=== PATIENT | male | born 1970 | race African-American/Black ===

== ENCOUNTER 2024-10-19 07:45 | Outpatient (AMB) | payer OTHER, SELFPAY ==
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
[2024-10-19 09:14] VITALS: BMI 44.6
== END 2024-10-19 09:47 | disposition home or self-care (01) ==
LOC: HO.HOS 07:45
PROVIDERS: Visit Provider Physician Assistant
DX: M25.812 Other specified joint disorders, left shoulder (principal)
CPT/HCPCS: 20610; 99203

== ENCOUNTER 2024-10-19 07:45 | Outpatient (REF) | payer OTHER, SELFPAY ==
--- NOTE | ~2024-10-19 | XR_ITS ---
EXAMINATION: XR SHOULDER 2 OR MORE VIEWS LEFT HISTORY: M25.512 - Pain in left shoulder COMPARISON: There are no prior studies available for comparison. FINDINGS: Three views of the left shoulder are submitted. Osseous mineralization is normal. There is no fracture or dislocation. The glenohumeral and acromioclavicular joint spaces are preserved. The soft tissues are unremarkable. XR/XR shoulder LT min 2V IMPRESSION: Unremarkable examination of the left shoulder. Electronically signed by: Colin Bailey MD 10/19/2024 09:26 AM EDT
== END 2024-10-19 07:46 | disposition home or self-care (01) ==
LOC: HO.HOSX 07:45
PROVIDERS: Visit Provider Physician Assistant
DX: S93.409A Sprain of unspecified ligament of unspecified ankle, initial encounter (principal); M25.812 Other specified joint disorders, left shoulder; M25.512 Pain in left shoulder; V89.2XXA Person injured in unspecified motor-vehicle accident, traffic, initial encounter
CPT/HCPCS: 20610; 73030; 99202; J1010; J2003

== ENCOUNTER → 2024-10-19 08:50 | Outpatient (BNV) | payer OTHER, SELFPAY | PROVIDERS: Visit Provider Radiology Diagnostic Radiology | DX: M25.512 Pain in left shoulder (principal) | CPT/HCPCS: 73030 ==

== ENCOUNTER 2024-11-12 07:47 | Outpatient (REF) | payer OTHER, SELFPAY ==
--- NOTE | ~2024-11-12 | XR_ITS ---
Examination: X-ray of the lumbar spine 4v Min TECHNIQUE: AP, bilateral oblique, lateral, lateral lumbosacral junction spot, x-rays of the lumbar spine Indication: M54.9 - Dorsalgia, unspecified Prior: None FINDINGS: The bowel gas pattern is normal. Calcifications in the pelvis are likely phleboliths. SI joints are symmetrical without degeneration, effusion, or erosions. There are 5 non-rib bearing lumbar segments. Vertebral body height and alignment is preserved. Oblique views demonstrate no pars interarticularis defects. T12-L1: There is minimal disc space narrowing L1-L2: There is mild disc space narrowing with endplate sclerosis and osteophytes L2-L3: There is subtle retrolisthesis L3-L4: There is subtle retrolisthesis and minimal loss of disc height. Small anterior osteophyte is noted L4-L5: There is minimal disc space narrowing with small endplate osteophytes. There is facet sclerosis. L5-S1: Unremarkable XR/XR lumbar spine 4V min IMPRESSION: Mild multilevel degenerative disc disease and facet arthropathy in the lower lumbar spine. Electronically signed by: Jon Rebollar MD 11/12/2024 10:01 AM EDT
== END 2024-11-12 07:48 | disposition home or self-care (01) ==
LOC: HO.HOSX 07:47
PROVIDERS: Visit Provider Physical Medicine & Rehabilitation
DX: M54.50 Low back pain, unspecified (principal)
CPT/HCPCS: 72110; 99202

== ENCOUNTER 2024-11-12 07:47 | Outpatient (AMB) | payer OTHER, SELFPAY ==
--- OUTSIDE RECORDS SUMMARY | 2024-11-11 11:30 | XMS_ITS | Encounter Summary ---
Author Organization [facility] Address [address] [place] [address] Care Team Providers Care Restuarant Crew Worker Name Role Phone Gael Alves MD Primary Care Provider [phone] Reason for Referral * Gastroenterology (Routine) - Authorized Specialty Diagnoses / Procedures Referred By Contac t Referred To Contact Gastroenterology Diagnoses Colon cancer screening Gael Alves MD [address] [place] [address] Phone: tel: fax: Randy Pickering MD [address] [place] [phone] Phone: tel: fax: Referral ID Status Reason Start Date Expiration Date V isits Requested Visits Authorized [id number] Authorized Consult 11/11/2024 11/12/2025 1 1 Question Answer Select Referral Type: Consult Reason for Visit * Reason Comments Annual Exam Encounter Details Date Type Department Care Team ([facility] Contact Info) Description 11/11/2024 11:30 AM EDT Office Visit [facility] [address] [phone] Gael Alves MD [address] [place] [address] Type 2 diabetes mellitus with hyperglycemia, without long-term current use of insulin (HCC) (Primary Dx); Screen for STD (sexually transmitted disease); Colon cancer screening; Annual physical exam Social History Tobacco Use Types Packs/Day Years Used Date Smoking Tobacco: Former Cigarettes Q uit: 03/18/2007 Smokeless Tobacco: Never Alcohol Use Standard Drinks/Week Comments Yes 0 (1 standard drink = 0.6 oz pur e alcohol) on [employer] [facility] Utilities Answer Date Recorded In the past 12 months has [employer], gas, oil, or water [employer] threatened to shut off services in your home? No 11/09/2024 Social Connection and Isolat ion Panel [NHANES] Answer Date Recorded In a typical week, how many times do you talk on the phone with family, friends, or neighbors? More than three times a week 11/09/2024 Frequency of Social Gatherin gs with Friends and Family Not on file 11/09/2024 Attends Adventism Services Not on file 11/09 Active Member of Clubs or Organizations Not on f ile 11/09/2024 Attends Club or Organization Meetings Not on stephen e 11/09/2024 Marital Status Not on file 11/09/2024 AUDIT-C Answer Date Recorded Q1: How often do you have a drink containing alcohol? Monthly or less 11/09/2024 Q2: How many drinks containi ng alcohol do you have on a typical day when you are drinking? Patient does not drink Frequency of Binge Drinking Not on file 10/17 Overall Financial Resource Strain (CARDIA) Answe r Date Recorded How hard is it for you to pa y for the very basics like food, housing, medical care, and heating? Not hard at all 02/10/2023 PHQ-2 Answer Date Recorded PHQ-2 Total Score 0 11/09/2024 [facility] [place] [facility] Occup[facility] ional [facility] - Occupational Stress Questionnaire Answer Date Recorded Do you feel stress - tense, restless, nervous, or anxious, or unable to sleep at night because your mind is troubled all the time - these days? Not at all 02/10/2023 Hunger Vital Sign Answer Date Recorded Within the past 12 months, y ou worried that your food would run out before you got the money to buy more. Never true 11/10/19 Within the past 12 months, t he food you bought just didn't last and you didn't have money to get more. Never true 11/09/2024 PRAPARE - Transportation Answer Date Re corded In the past 12 months, has l ack of transportation kept you from medical appointments or from getting medications? No 10/17 In the past 12 months, has l ack of transportation kept you from meetings, work, or from getting things needed for daily living? No 11/09/2024 Housing Stability Vital Sign Answer Forrest e Recorded In the last 12 months, was t here a time when you were not able to pay the mortgage or rent on time? No 11/09/2024 In the past 12 months, how m any times have you moved where you were living? 0 11/09/2024 At any time in the past 12 m [facility], were you homeless or living in a care home (including now)? No 11/09/2024 Physical Activity Answer Date Recorded On average, how many days pe r week do you engage in moderate to strenuous exercise (like a brisk walk)? 1 day 11/09/2024 On average, how many minutes do you exercise per day at this level? 10 min 11/09/2024 Education Answer Date Recorded What is the highest level of school you have completed or the highest degree you have received? 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 Not on file Not on stephen e documented as of this encounter Last Filed Vital Signs Vital Sign Reading Time Taken Comments Blood Pressure 134/82 11/11/2024 11:11 AM EDT Pulse 81 11/11/2024 11:11 AM EDT Temperature - - Respiratory Rate 16 11/11/2024 11:11 AM EDT Oxygen Saturation 99% 11/11/2024 11:11 AM EDT Inhaled Oxygen Concentration - - Weight 169 kg (371 lb 9.6 oz) 11/11/2024 11:11 A M EDT Height 180.3 cm (5' 11 ) 11/11/2024 11:11 AM EDT Body Mass Index 51.83 11/11/2024 11:11 AM EDT documented in this encounter Patient Instructions * Attachments The following attachments cannot be sent through Care Everywhere. * Diabetes Mellitus and Nutrition Adult (Romansh) documented in this encounter Progress Notes * Gael Alves MD - 11/11/2024 11:37 AM EDT Assessment and Plan 1. Type 2 diabetes mellitus with hyperglycemia, without long-term current use of insulin (HCC) - Complete Blood Count, with Differential - semaglutide (Ozempic, 0.25 or 0.5 MG/DOSE,) (0.25 or 0.5 mg/dose pen) prefilled pen injection; Inject 0.25 mg under the skin once a week. Dispense: 3 mL; Refill: 0 - metFORMIN (GLUCOPHAGE) 500 MG tablet; Take 1 tablet (500 mg total) by mouth 2 (two) times a day with meals. Dispense: 180 tablet; Refill: 3 - Alcohol Swabs 70 % Pads; Use 1x / day Dispense: 100 Pad(s); Refill: 5 - Blood Glucose Monitoring Suppl Kit; Use 1x / day Dispense: 1 kit; Refill: 0 - glucose blood test strip; Use 1x / day Dispense: 100 each; Refill: 5 - Lancets Thin Misc Lancet; Use 1x / day Dispense: 100 lancet(s); Refill: 5 2. Screen for STD (sexually transmitted disease) - GC/Chlamydia, RNA TMA - Hepatitis C Antibody & HIV 1/2, Screen & Diagnostic Panel w/Reflexes - Hepatitis Panel, Acute - Trichomonas vaginalis RNA, TMA, Urine, Q1 (Male) - Syphilis ANDREW reflex RPR Titer & TPPA 3. Colon cancer screening - Amb Referral to Gastroenterology - Clinically stable and afebrile. - Recent lab work reviewed at length. A1c is above 7. Lengthy discussion regarding regular exerciseand healthy diet planning. Treatment plan as above. Needs close follow-up in 4 weeks. - Statin/ARB to be considered on next visit. Plan/Discussion: - Patient is advised to seek immediate medical help if strict red flag symptoms or signs develops or develops shortness of breath, chest pain, dizziness The care plan including medications and self-management goals were reviewed to the best of the patient's ability. All questions were answered. The patient or accompanying family member verbalized understanding of the plan of care. As per up-to-date guideline : risk of thyroid C-cell tumors with Ozempic use In rodents, ??m?gl?ti?e causes dose-dependent and cklqqdjyt-eoicyxfh-ngmakaluf thyroid C-cell tumors at clinically relevant exposures. It is unknown whether ?em?gl?ti?e causes thyroid C-cell tumors, including medullary thyroid carcinoma (MTC), in humans as human relevance of ??m?gluti?e-induced rodent thyroid C-cell tumors has not been determined. ??m?glutide is contraindicated in patients with a personal or family history of MTC or in patients with Multiple Endocrine Neoplasia syndrome type 2 (MEN 2). Client Services Account Manager patients regarding the potential risk for MTC with the use of ??m?gluti?e and inform them of symptoms of thyroid tumors (eg, a mass in the neck, dysphagia, dyspnea, persistent hoarseness). Routine monitoring of serum calcitonin or using thyroid ultrasound is of uncertain value for early detection of MTC in patients treated with ??magluti??. There are no discontinued medications. Return in about 4 weeks (around 12/09/2024) for DM follow up, AVS print out. Communication barriers and lifestyle preferences were addressed with the patient. The care plan including medications and self-management goals were reviewed to the best of the patient's abilities. All questions and concerns were answered. Patient and/or family verbalized understanding of the plan of care. Screening, Counseling & Education Labs reviewed, Nutrition and exercise counseling, and Exercise recommended- 150 minutes per week Subjective Subjective Patient's concern for today: Review of Systems Constitutional: Negative for fever. Eyes: Negative for photophobia and visual disturbance. Respiratory: Negative for cough, choking, shortness of breath and wheezing. Cardiovascular: Negative for chest pain, palpitations and leg swelling. Gastrointestinal: Positive for blood in stool (? hemorrhoides). Negative for abdominal pain. Genitourinary: Negative for flank pain and frequency. Musculoskeletal: Negative for arthralgias. Neurological: Negative for dizziness, syncope, weakness and headaches. Psychiatric/Behavioral: Negative for self-injury and suicidal ideas. General Health & Lifestyle Review Do you feel you eat a healthy and well balanced diet?: (Patient-Rptd) No Do you have a special kind of diet?: (Patient-Rptd) No On average, how many days per week do you engage in moderate to strenuous exercise (like a brisk walk)?: (Patient-Rptd) 1 day On average, how many minutes do you exercise per day at this level?: (Patient- Rptd) 10 min Total minutes per week of physical activity: : (Patient-Rptd) 10 Body mass index is 51.83 kg/m??. Wt Readings from Last 2 Encounters: 11/11/24 (!) 169 kg (371 lb 9.6 oz) 11/11/23 (!) 167 kg (368 lb) How would you rate your sleep quality? : (Patient-Rptd) Occasional unrestful sleep Do you have any problems with your hearing?: (Patient-Rptd) No Do you have any problems with your vision?: (Patient-Rptd) No Sexual/ Reproductive Health Are you sexually active?: (Patient-Rptd) Yes Do you use control/contraception?: (Patient-Rptd) No Do you have problems with sex?: (Patient-Rptd) No Sexual partners?: (Patient-Rptd) Women Do you want STD testing today?: (!) (Patient-Rptd) Yes Nocturia: 0 - 1 times per night Mental Health/Domestic Violence/Safety Screening Depression Screen: PHQ-9 Total Score: 0 Anxiety Screen: THI-7 Total Score: 0 Is there anyone in your life who is hurting or threatening you in any way? no Referral Hotline [phone] (Romansh) [phone] (Mal[place]ian) Do you always fasten your seatbelt when you are in a car?: (Patient-Rptd) Yes Do you wear a helmet when appropriate?: (Patient-Rptd) Yes Do you wear sunscreen when appropriate?: (Patient-Rptd) Yes Do you have working smoke and carbon monoxide detectors?: (Patient-Rptd) Yes Do you have any unsecured firearms in your home?: (Patient-Rptd) No Health Maintenance & Immunizations Health Maintenance Due Topic Date Due Hepatitis B Vaccines (1 of 3 - 19+ 3-dose series) Never done DTaP/Tdap/Td Vaccines (1 - Tdap) Never done Colonoscopy Never done Pneumococcal Vaccines 50+ (1 of 1 - PCV) Never done Zoster (Shingles) Vaccine (1 of 2) Never done The 10-year ASCVD risk score (Carolina WOOTEN, et al., 2019) is: 5.9% Values used to calculate the score: Age: 54 years Sex: Male Is Non- : Yes Diabetic: No Tobacco smoker: No Systolic Blood Pressure: 134 mmHg Is BP treated: No HDL Cholesterol: 55 mg/dL Total Cholesterol: 176 mg/dL Health Maintenance Topic Date Due Hepatitis B Vaccines (1 of 3 - 19+ 3-dose series) Never done DTaP/Tdap/Td Vaccines (1 - Tdap) Never done Colonoscopy Never done Pneumococcal Vaccines 50+ (1 of 1 - PCV) Never done Zoster (Shingles) Vaccine (1 of 2) Never done Physical 11/11/2025 Hepatitis C Virus Screening Completed HIV Screening Completed COVID-19 Vaccine Discontinued Influenza Vaccine Discontinued PSA:Due now Lab Results Component Value Date PSA 0.39 10/28/2024 Colonoscopy:Cologuard requested Screening due:At this time. Hemoglobin A1C: Lab Results Component Value Date HGBA1C 7.8 (H) 10/28/2024 Thyroid: Lab Results Component Value Date TSH 1.01 10/28/2024 Lipids:Last lipid results shown. Lab Results Component Value Date CHOL 176 10/28/2024 HDL 55 10/28/2024 CHOLHDLRAT 3.2 10/28/2024 LDLCHOL 97 10/28/2024 TRIG 137 10/28/2024 Social History Social History[3] Objective Objective Vitals: 11/11/24 1111 BP: 134/82 BP Location: Right arm Patient Position: Sitting Cuff Size: Large Pulse: 81 Resp: 16 SpO2: 99% Weight: (!) 169 kg (371 lb 9.6 oz) Height: 1.803 m (5' 11 ) Physical Exam Constitutional: General: He is not in acute distress. Appearance: He is well-developed. HENT: Head: Normocephalic and atraumatic. Cardiovascular: Rate and Rhythm: Normal rate and regular rhythm. Heart sounds: No murmur heard. Pulmonary: Effort: Pulmonary effort is normal. No respiratory distress. Breath sounds: Normal breath sounds. No wheezing or rales. Abdominal: General: There is no distension. Palpations: Abdomen is soft. Tenderness: There is no abdominal tenderness. There is no guarding. Musculoskeletal: Cervical back: Normal range of motion. Right lower leg: No edema. Left lower leg: No edema. Skin: General: Skin is warm and dry. Neurological: Mental Status: He is alert and oriented to person, place, and time. Psychiatric: Mood and Affect: Mood normal. Behavior: Behavior normal. Testing ECG: Not required or indicated. Lab results: As per chart review. [3] Social History Tobacco Use Smoking status: Former Current packs/day: 0.00 Types: Cigarettes Quit date: 03/18/2007 Years since quittin.6 Smokeless tobacco: Never Vaping Use Vaping status: Never Used Substance Use Topics Alcohol use: Yes Comment: on ocassion Drug use: Never documented in this encounter Plan of Treatment Upcoming Encounters Date Type Department Care Team (Late st Contact Info) Description 12/10/2024 11:00 AM EDT Office Visit [address] [phone] Gael Alves MD [address] [place] [phone] Scheduled Orders Name Type Priority Associated Diagnoses Orde r Schedule GC/Chlamydia, RNA TMA Microbiology Routine Screen for STD (sexually transmitted disease) Ordered: 11/11/2024 Hepatitis C Antibody & HIV 1/2, Screen & Diagnostic Panel w/Reflexes Lab Routine Screen for STD (sexually transmitted disease) Ordered: 11/11/2024 Hepatitis Panel, Acute Lab Routine Screen for STD (sexually transmitted disease) Ordered: 11/11/2024 Trichomonas vaginalis RNA, TMA, Urine, Q1 (Male) Lab Routine Screen for STD (sexually transmitted disease) Ordered: 11/11/2024 Syphilis ANDREW reflex RPR Titer & TPPA Lab Routine Screen for STD (sexually transmitted disease) Ordered: 11/11/2024 Complete Blood Count, with Differential Lab Routine Type 2 diabetes mellitus with hyperglycemia, without long-term current use of insulin (HCC) Ordered: 11/11/2024 Scheduled Referrals Name Type Priority Associated Diagnoses Order Schedule Amb Referral to Gastroenterology Outpatient Referral Routine Colon cancer screening Ordered: 11/11/2024 documented as of this encounter Visit Diagnoses Diagnosis Type 2 diabetes mellitus with hyperglycemia, without long-term current use of insulin (HCC)- Primary Screen for STD (sexually transmitted disease) Screening examination for venereal disease Colon cancer screening Special screening for malignant neoplasms, colon Annual physical exam Routine general medical examination at a health care facility documented in this encounter Care Teams Restuarant Crew Worker Relationship Specialty Start Date End Date Gael Alves MD [address] [place] [phone] PCP - General Family Medicine 07/30/22 documented as of this encounter
--- OUTSIDE RECORDS SUMMARY | 2024-11-12 07:51 | XMS_ITS | Encounter Summary ---
Author Organization [facility] Address [address] [place] [address] Care Team Providers Care Center Rep Name Role Phone Gael Alves MD Primary Care Provider +1- [phone] Encounter Details Date Type Department Care Team (Late Contact Info) Description 01/22/2023 Scanned Document [facility] PRIMARY CARE SCAN Primary Care, Scan Social History Tobacco Use Types Packs/Day Years Used Date Smoking Tobacco: Former Cigarettes 0.3 2017 Smokeless Tobacco: Never Alcohol Use Standard Drinks/Week Comments Yes 0 (1 standard drink = 0.6 oz pur e alcohol) on ocassion PHQ-2 Answer Date Recorded PHQ-2 Total Score 0 07/30/2022 [facility] of Occupat ional Health - Occupational Stress Questionnaire Answer Date Recorded Do you feel stress - tense, restless, nervous, or anxious, or unable to sleep at night because your mind is troubled all the time - these days? 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
--- OUTSIDE RECORDS SUMMARY | 2024-11-12 07:51 | XMS_ITS | Encounter Summary ---
Author Organization [facility] Address [address] [place] [address] Care Team Providers Care Manager Electronic Name Role Phone Gael Alves MD Primary Care Provider +1- [phone] Encounter Details Date Type Department Care Team (Late st Contact Info) Description 04/11/2023 Scanned Document [address] [place] [phone] Primary Care, Scan Social History Tobacco Use Types Packs/Day Years Used Date Smoking Tobacco: Former Cigarettes Q uit: 03/18/2007 Smokeless Tobacco: Never Alcohol Use Standard Drinks/Week Comments Yes 0 (1 standard drink = 0.6 oz pur e alcohol) on [employer] [facility] Utilities Answer Date Recorded In the past 12 months has [employer] [employer], gas, oil, or water company threatened to shut off services in your home? No 02/10/2023 Social Connection and Isolat ion Panel [NHANES] Answer Date Recorded In a typical week, how many times do you talk on the phone with family, friends, or neighbors? More than three times a week 02/10/2023 How often do you get togethe r with friends or relatives? More than three times a week 02/10/2023 How often do you attend chur ch or scientology services? Never 02/10/2023 Do you belong to any clubs o r organizations such as amish groups, unions, fraternal or athletic groups, or school groups? No 02/10/2023 How often do you attend meet ings of the clubs or organizations you belong to? Never 02/10/2023 Are you , , di vorced, , never , or living with a partner? Living with partner 02/10/2023 AUDIT-C Answer Date Recorded Q1: How often do you have a drink containing alc ohol? 2-4 times a month 02/10/2023 Q2: How many drinks containi ng alcohol do you have on a typical day when you are drinking? 1 or 2 02/10/2023 Q3: How often do you have si x or more drinks on one occasion? Never 02/10/2023 Overall Financial Resource Strain (CARDIA) Answe r Date Recorded How hard is it for you to pa y for the very basics like food, housing, medical care, and heating? Not hard at all 02/10/2023 PHQ-2 Answer Date Recorded PHQ-2 Total Score 0 02/11/2023 [facility] - Occupational Stress Questionnaire Answer Date Recorded [...] the money to buy more. Never true 02/11/20 23 Within the past 12 months, t he food you bought just didn't last and you didn't have money to get more. Never true 02/10/2023 PRAPARE - Transportation Answer Date Re corded In the past 12 months, has l ack of transportation kept you from medical appointments or from getting medications? No 01/17 In the past 12 months, has l ack of transportation kept you from meetings, work, or from getting things needed for daily living? No 02/10/2023 Physical Activity Answer Date Recorded On average, how many days pe r week do you engage in moderate to strenuous exercise (like a brisk walk)? 5 02/10/2023 On average, how many minutes do you exercise per day at this level? 30 02/10/2023 Education Answer Date Recorded What is the [...] Description 12/10/2024 11:00 AM EDT Office Visit [facility] [address] [place] [phone] Gael Alves MD [address] [place] [address] documented as of this encounter Procedures Procedure Name Priority Date/Time Associated Diagnosis Comments HX OUTSIDE ORDER 04/11/2023 documented in this encounter Results * HX OUTSIDE ORDER (04/11/2023) us Scan Primary Care HX AMB PROCEDURES Final Result documented in this encounter Visit Diagnoses Not on filedocumented in this encounter Care Teams Manager Electronic Relationship Specialty Start Date End Date Gael Alves MD [address] [place] [phone] PCP - General Family Medicine 07/30/22 documented as of this encounter
--- OUTSIDE RECORDS SUMMARY | 2024-11-12 07:51 | XMS_ITS | Encounter Summary ---
Author Organization [facility] Address [address] [place] [address] Care Team Providers Care Admissions Counselor Name Role Phone Gael Alves MD Primary Care Provider +1- [phone] Encounter Details Date Type Department Care Team ([facility] st Contact Info) Description 10/10/2023 Scanned Document [facility] [address] [phone] Mouna Case, BUNKER WORKER [address] [place] [address] Social History Tobacco Use Types Packs/Day Years Used Date Smoking Tobacco: Former Cigarettes Q uit: 03/18/2007 Smokeless Tobacco: Never Alcohol Use Standard Drinks/Week Comments Yes 0 (1 standard drink = 0.6 oz pur e alcohol) on [employer] [facility] Utilities Answer Date Recorded In the past 12 months has [employer], gas, oil, or water [employer] threatened to shut off services in your [...] often do you attend chur ch or denominational services? Never 02/10/2023 Do you belong to any clubs o r organizations such as gnosticism groups, unions, fraternal or athletic groups, or [...] Date Recorded PHQ-2 Total Score 0 02/11/2023 [facility] of Occupat ional Health - Occupational [...] Description 12/10/2024 11:00 AM EDT Office Visit [facility] [address] [place], [place] [phone] Gael Alves MD [address] [place], [place] documented as of this encounter Visit Diagnoses Not on filedocumented in this encounter Care Teams Admissions Counselor Relationship Specialty Start Date End Date Gael Alves MD [address] [place] [address] PCP - General Family Medicine 07/30/22 documented as of this encounter
--- OUTSIDE RECORDS SUMMARY | 2024-11-12 07:51 | XMS_ITS | Encounter Summary ---
Author Organization [facility] Address [address] [place] [address] Care Team Providers Care Lawn Mower Repairer Name Role Phone Gael Alves MD Primary Care Provider +1- [phone] Encounter Details Date Type Department Care Team (Latest Contact Info) Description 11/11/2024 Travel Social History Tobacco Use Types Packs/Day Years Used Date Smoking Tobacco: Former Cigarettes Q uit: 03/18/2007 Smokeless Tobacco: Never Alcohol Use Standard Drinks/Week Comments Yes 0 (1 standard drink = 0.6 oz pur e alcohol) on [employer] Utilities Answer Date Recorded In the past 12 months has [place] electric, gas, oil, or water company threatened [...] and Family Not on file 11/09/2024 Attends Muslim Services Not on file 11/09 Active Member [...] Date Recorded PHQ-2 Total Score 0 11/09/2024 [facility] of Occupat ional Health - Occupational Stress [...] any time in the past 12 m [facility], were you homeless or living in a residential (including now)? No 11/09/2024 Physical Activity Answer [...] Description 12/10/2024 11:00 AM EDT Office Visit [address] [phone] Gael Alves MD [address] [place] [address] documented as of this encounter Visit Diagnoses Not on filedocumented in this encounter Care Teams Lawn Mower Repairer Relationship Specialty Start Date End Date Gael Alves MD [address] [place] [address] PCP - General Family Medicine 07/30/22 documented as of this encounter
--- OUTSIDE RECORDS SUMMARY | 2024-11-12 07:51 | XMS_ITS | Encounter Summary ---
Author Organization [facility] Address [address] [place] [address] Care Team Providers Care Metabolic Specialist Name Role Phone Gael Alves MD Primary Care Provider +1- [phone] Reason for Visit * Reason Comments Appointment Encounter Details Date Type Department Care Team ([facility] Contact Info) Description 10/11/2022 Telephone [facility] [place] [phone] Gael Alves MD [address] [place] [phone] Appointment Social History Tobacco Use Types Packs/Day Years Used Date Smoking Tobacco: Former Cigarettes 0.3 10 2017 Smokeless Tobacco: Never Alcohol Use Standard Drinks/Week Comments Yes 0 (1 standard drink = 0.6 oz pur e alcohol) on ocassion PHQ-2 Answer Date Recorded PHQ-2 Total Score 0 07/30/2022 Sex and Gender Information Value Date Recorded [...] Description 12/10/2024 11:00 AM EDT Office Visit [facility] [address] [place], [place] [phone] Gael Alves MD [address] [place], [place] documented as of this encounter Visit Diagnoses Not on filedocumented in this encounter Care Teams Metabolic Specialist Relationship Specialty Start Date End Date Gael Alves MD [address] [place] [address] PCP - General Family Medicine 07/30/22 documented as of this encounter
--- OUTSIDE RECORDS SUMMARY | 2024-11-12 07:51 | XMS_ITS | Encounter Summary ---
Author Organization [facility] Address [address] [place] [address] Care Team Providers Care Wash Rack Operator Name Role Phone Gael Alves MD Primary Care Provider +1- [phone] Encounter Details Date Type Department Care Team ([facility] st Contact Info) Description 04/19/2023 Scanned Document [facility] [address] [phone] MD [address] [place] [address], [place] [address] Social History Tobacco Use Types Packs/Day Years Used Date Smoking Tobacco: Former Cigarettes Q uit: 03/18/2007 Smokeless Tobacco: Never Alcohol Use Standard Drinks/Week Comments Yes 0 (1 standard drink = 0.6 oz pur e alcohol) on [employer] Utilities Answer Date Recorded In the past 12 months has [employer], gas, oil, or water [employer] threatened to shut off services in your [...] often do you attend chur ch or yarsanism services? Never 02/10/2023 Do you belong to any clubs o r organizations such as voodoo groups, unions, fraternal or athletic groups, or [...] Date Recorded PHQ-2 Total Score 0 02/11/2023 [facility] of Occupat ional Health - Occupational [...] Description 12/10/2024 11:00 AM EDT Office Visit [facility] [address] [place] [phone] Gael Alves MD [address] [place], [place] documented as of this encounter Visit Diagnoses Not on filedocumented in this encounter Care Teams Wash Rack Operator Relationship Specialty Start Date End Date Gael Alves MD [address] [place] [address] PCP - General Family Medicine 07/30/22 documented as of this encounter
--- OUTSIDE RECORDS SUMMARY | 2024-11-12 07:51 | XMS_ITS | Clinical Summary ---
Author Organization [facility] Address [address] [place] [address] Phone Care Team Providers Care Policy Officer Name Role Phone Gael Alves MD Primary Care Provider +1- [phone] Allergies No known active allergies Medications methocarbamoL (ROBAXIN) 500 mg tablet Take 1 tablet (500 mg total) by mouth 2 (two) times a day for 10 days. 20 tablet 06/11/2024 Active Social History Tobacco Use Types Packs/Day Years Used Date Smoking Tobacco: Never Smokeless Tobacco: Never Tobacco Cessation:Counseling Given: Not Answered Sex and Gender Information Value Date Recorded Sex Assigned at Male 03/25/2024 2:09 PM EST Legal Sex Male 1:07 PM EST Gender Identity Male 03/25/2024 2:09 PM EST Sexual Orientation Straight 03/25/2024 2: 09 PM EST Obstetrics History Last Filed Vital Signs Vital Sign Reading Time Taken Comments Blood Pressure 150/84 06/11/2024 1:54 PM EDT Pulse 89 06/11/2024 1:54 PM EDT Temperature 36.7 C (98 F) 06/11/2024 1:54 PM EDT Respiratory Rate 18 06/11/2024 1:54 PM EDT Oxygen Saturation 97% 06/11/2024 1:54 PM EDT Inhaled Oxygen Concentration - - Weight 136 kg (300 lb) 06/11/2024 1:54 PM EDT Height 180.3 cm (5' 11 ) 06/11/2024 1:54 PM EDT Body Mass Index 41.84 06/11/2024 1:54 PM EDT Plan of Treatment Health Maintenance Due Date Last Done Comments DTaP,Tdap,and Td Vaccines (1 - Tdap) 01/25/1991 Hepatitis B Vaccines (1 of 3 - 19+ 3-dose series) 01/25/1991 Pneumococcal Vaccine: 50+ Ye ars (1 of 1 - PCV) 01/25/2022 Zoster Vaccines (1 of 2) 01/25/2022 COVID-19 Vaccine (1 - 2023-2 5 season) 2023 Depression Screening 03/18/2024 Cholesterol Screening (Lipid Panel) 03/25/2024 Colorectal Cancer Screening: Colonoscopy 03/25/2024 HIV Screening 03/25/2024 Hepatitis C Screening 03/25/2024 Social Influencers of Health Screening 03/25/2024 Influenza Vaccine (#1) 2024 HIB Vaccines Aged Out No longer eligi ble based on patient's age to complete this topic HPV Vaccines Aged Out No longer eligi ble based on patient's age to complete this topic Hepatitis A Vaccines Aged Out No long er eligible based on patient's age to complete this topic IPV Vaccines Aged Out No longer eligi ble based on patient's age to complete this topic MMR Vaccines Aged Out No longer eligi ble based on patient's age to complete this topic Meningococcal ACWY Vaccine Aged Out N o longer eligible based on patient's age to complete this topic Meningococcal B Vaccine Aged Out No l onger eligible based on patient's age to complete this topic RSV Immunization Patients Un dc 20 months Aged Out No longer eligible b ased on patient's age to complete this topic Varicella Vaccines Aged Out No longer eligible based on patient's age to complete this topic [place] Care Teams Policy Officer Relationship Specialty Start Date End Date Gael Alves MD [address] [place] [address] PCP - General Family Medicine 06/11/24
--- OUTSIDE RECORDS SUMMARY | 2024-11-12 07:51 | XMS_ITS | Encounter Summary ---
Author Organization [facility] Address [address] [place] [address] Care Team Providers Care Manager Of School Name Role Phone Gael Alves MD Primary Care Provider +1- [phone] Encounter Details Date Type Department Care Team (Late Contact Info) Description 01/24/2023 Scanned Document [facility] PRIMARY CARE SCAN Primary Care, Scan Social History Tobacco Use Types Packs/Day Years Used Date Smoking Tobacco: Former Cigarettes 0.3 2017 Smokeless Tobacco: Never Alcohol Use Standard Drinks/Week Comments Yes 0 (1 standard drink = 0.6 oz pur e alcohol) on ocassion PHQ-2 Answer Date Recorded PHQ-2 Total Score 0 07/30/2022 [facility] of Occupat ional Health - Occupational [...] Description 12/10/2024 11:00 AM EDT Office Visit [facility] [address] [place], [place] [phone] Gael Alves MD [address] [place], [place] documented as of this encounter Visit Diagnoses Not on filedocumented in this encounter Care Teams Manager Of School Relationship Specialty Start Date End Date Gael Alves MD [address] [place] [phone] PCP - General Family Medicine 07/30/22 documented as of this encounter
--- OUTSIDE RECORDS SUMMARY | 2024-11-12 07:51 | XMS_ITS | Clinical Summary ---
Author Organization [facility] Address [address] [place] [address] Care Team Providers Care Commercial Loan Assistant Name Role Phone Gael Alves MD Primary Care Provider +1- [phone] Allergies No known active allergies Medications tiZANidine (ZANAFLEX) 2 MG tabletIndication s:Lumbar spondylosis Take 1-2 tablets (2-4 mg total) by mouth 3 (three) times a day as needed (pain). 180 tablet 1 3 Active multivitamin Tab tablet Take 1 tablet by mouth daily. Active SUPPLY DME MISCIndications: Obstructive sleep apnea DME COMPANY: [facility] Order Type: New Set-Up Start Date: 08/14/23 Length of Need: 99 months/Lifetime [E0601] CPAP Machine: ResMed AirSense S11 Auto-CPAP (NO SUBSTITUTIONS) Quantity: 1 Setting: APAP 13-16cm [E0562] PAP Humidifier, Heated Quantity: 1 [A7030] PAP Mask, Full Face: Vitera FFM-L or per patient preference; 1 per 3 months Quantity: 1 [A7031] PAP Mask Full Face Interface Cushion: Vitera FFM-L or per patient preference; 1 per 1 months Quantity: 1 [A4604] PAP Machine Tubing, Heated; 1 per 3 months Quantity: 1 [A7035] PAP Headgear: Vitera FFM-L or per patient preference; 1 per 6 months Quantity: 1 [A7046] PAP Water Chamber; 1 per 6 months Quantity: 1 [A7038] Disposable PAP Filter; 2 per 1 month Quantity: 1 1 each 4 Active semaglutide (Ozempic, 0.25 or 0.5 MG/DOSE,) (0.25 or 0.5 mg/dose pen) prefilled pen injectionIndicat ions:Type 2 diabetes mellitus with hyperglycemia, without long-term current use of insulin (HCC) Inject 0.25 mg under the skin once a week. 3 mL 5 Active metFORMIN (GLUCOPHAGE) 500 MG tabletIndication s:Type 2 diabetes mellitus with hyperglycemia, without long-term current use of insulin (HCC) Take 1 tablet (500 mg total) by mouth 2 (two) times a day with meals. 180 tablet 3 5 11/07/19 26 Active Alcohol Swabs 70 % PadsIndications: Type 2 diabetes mellitus with hyperglycemia, without long-term current use of insulin (HCC) Use 1x / day 100 Pad(s) 5 5 Active Blood Glucose Monitoring Suppl KitIndications:T ype 2 diabetes mellitus with hyperglycemia, without long-term current use of insulin (HCC) Use 1x / day 1 kit 5 Active glucose blood test stripIndications :Type 2 diabetes mellitus with hyperglycemia, without long-term current use of insulin (HCC) Use 1x / day 100 each 5 5 Active Lancets Thin Misc LancetIndication s:Type 2 diabetes mellitus with hyperglycemia, without long-term current use of insulin (HCC) Use 1x / day 100 lancet(s) 5 5 Active Active Problems Problem Noted Date Diagnosed Date Type 2 diabetes mellitus wit h hyperglycemia, without long-term current use of insulin 11/11/2024 Seasonal allergies 07/30/2022 Chronic back pain 07/30/2022 Encounters Date Type Department Care Team Description 11/11/2024 11:30 AM EDT Office Visit [address] [phone] Gael Alves MD Type 2 diabetes mellitus with hyperglycemia, without long-term current use of insulin (HCC) (Primary Dx); Screen for STD (sexually transmitted disease); Colon cancer screening; Annual physical exam 11/11/2024 Travel from Last 3 Months Family History Medical History Relation Name Comments Breast cancer Mother Relation Name Status Comments Mother Social History Tobacco Use Types Packs/Day Years Used Date Smoking Tobacco: Former Cigarettes Q uit: 03/18/2007 Smokeless Tobacco: Never Tobacco Cessation:Counseling Given: Not Answered Alcohol Use Standard Drinks/Week Comments Yes 0 (1 standard drink = 0.6 oz pur e alcohol) on ocassion [facility] Utilities Answer Date Recorded In the past 12 months has th e electric, gas, oil, or water company threatened [...] Date Recorded PHQ-2 Total Score 0 11/09/2024 [facility] Occupat ional Health - Occupational Stress [...] any time in the past 12 m [facility], were you homeless or living in a penitentiary (including now)? No 11/09/2024 Physical Activity Answer [...] Not on file Not on stephen e Last Filed Vital Signs Vital Sign Reading Time Taken Comments Blood Pressure 134/82 11/11/2024 11:11 AM EDT Pulse 81 11/11/2024 11:11 AM EDT Temperature 37.1 C (98.7 F) 04/14/2021 8:59 PM EST Respiratory Rate 16 11/11/2024 11:11 AM EDT Oxygen Saturation 99% 11/11/2024 11:11 AM EDT Inhaled Oxygen Concentration - - Weight 169 kg (371 lb 9.6 oz) 11/11/2024 11:11 A M EDT Height 180.3 cm (5' 11 ) 11/11/2024 11:11 AM EDT Body Mass Index 51.83 11/11/2024 11:11 AM EDT Plan of Treatment Upcoming Encounters Date Type Department Care Team (Late st Contact Info) Description 12/10/2024 11:00 AM EDT Office Visit [address] [phone] Gael Alves MD [address] [place] [phone] Health Maintenance Due Date Last Done Comments Foot Exam 01/25/1982 Ophthalmology Exam 01/25/1982 Microalbumin/Creatinine Ratio Urine 01/25/1990 DTaP/Tdap/Td Vaccines (1 - Tdap) 01/25/1991 Hepatitis B Vaccines (1 of 3 - 19+ 3-dose series) 01/25/1991 Pneumococcal Vaccines 50+ (1 of 2 - PCV) 01/25/1991 Colonoscopy 01/25/2017 Zoster (Shingles) Vaccine (1 of 2) 01/25/2022 Hemoglobin A1C 04/30/2025 10/28/2024, 10/25/2022 Creatinine with GFR 10/28/2025 10/28/2024, 10/25/2022, 07/30/2022 Lipid Panel 10/28/2025 10/28/2024, 07/30/2022 Physical 11/11/2025 11/11/2024, 02/11/2023 HIV Screening Completed 07/30/2022 Hepatitis C Virus Screening Completed 07/30/2022 COVID-19 Vaccine Discontinued Influenza Vaccine Discontinued Procedures Procedure Name Priority Date/Time Associated Diagnosis Comments HEMOGLOBIN A1C Routine 10/28/2024 1:37 PM EDT Prediabetes TSH REFLEX TO FREE T4 Routine 10/28/2024 1:37 PM EDT Healthcare maintenance PSA Routine 10/28/2024 1:37 PM EDT Prostate cancer screening LIPID PANEL REFLEX DIRECT LDL Routine 10/28/2024 1:37 PM EDT Healthcare maintenance COMPREHENSIVE METABOLIC PANEL Routine 10/28/2024 1:37 PM EDT Healthcare maintenance COMPLETE BLOOD COUNT, WITH DIFFERENTIAL Routine 10/28/2024 1:37 PM EDT Healthcare maintenance HIV 1/2 AG/AB CMIA REFLEX TO CONFIRMATION Routine 07/30/2022 9:56 AM EDT BMI 50.0-59.9, adult (HCC) HEPATITIS PANEL, ACUTE Routine 9:56 AM EDT BMI 50.0-59.9, adult (HCC) from Last 3 Months or Most Recently Relevant to Health Maintenance Results * Lipid Panel Reflex Direct LDL (10/28/2024 1:37 PM EDT) Pathologist [facility] Cholesterol, Total 176 <200 mg/dL [facility] Cholesterol, HDL 55 > OR = 40 mg/dL [facility] Triglycerides 137 <150 mg/dL [facility] LDL Cholesterol 97 mg/dL (calc) [facility] Comment: Reference range: <100 Desirable range <100 mg/dL for primary prevention; <70 mg/dL for patients with CHD or diabetic patients with > or = 2 CHD risk factors. LDL-C is now calculated using the Abad-Lovell calculation, which is a validated novel method providing better accuracy than the Friedewald equation in the estimation of LDL-C. Abad SS et al. HANS. 2013;310(19): 4614-5407 (http://education.The Optima/faq/KHW086) Cholesterol/HDL Ratio 3.2 <5.0 (calc) [facility] Non HDL Chol. (LDL+VLDL) 121 <130 mg/dL (calc) [facility] Comment: For patients with diabetes plus 1 major ASCVD risk factor, treating to a non-HDL-C goal of <100 mg/dL (LDL-C of <70 mg/dL) is considered a therapeutic option. Blood Blood specimen / Unknown 10/28/2024 1:37 PM EDT 10/28/2024 1:41 PM EDT Narrative [facility] - 10/29/2024 7:08 PM EDT FASTING:YES FASTING: YES Result [facility] us Gael Alves MD LAB BLOOD ORDERABLES Final Result Performing Organization Address [facility] de Phone Number [facility] [address] [place] [phone] * TSH REFLEX FREE T4 (10/28/2024 1:37 PM EDT) TSH reflex Free T4 1.01 0.40 - 4.50 mIU/L [facility] Blood Blood specimen / Unknown 10/28/2024 1:37 PM EDT 10/28/2024 1:41 PM EDT [facility] - 10/29/2024 7:08 PM EDT FASTING:YES FASTING: YES Result [facility] us Gael Alves MD LAB BLOOD ORDERABLES Final Result Performing Organization Address [facility] de Phone Number [facility] [address] [place] [phone] * PSA (10/28/2024 1:37 PM EDT) Pathologist [facility] PSA, Total 0.39 < OR = 4.00 ng/mL [facility] Comment: The total PSA value from this assay system is standardized against the WHO standard. The test result will be approximately 20% lower when compared to the equimolar-standardized total PSA (Cathleen Wellborn). Comparison of serial PSA results should be interpreted with this fact in mind. This test was performed using the Siemens chemiluminescent method. Values obtained from different assay methods cannot be used interchangeably. PSA levels, regardless of value, should not be interpreted as absolute evidence of the presence or absence of disease. Blood Blood specimen / Unknown 10/28/2024 1:37 PM EDT 10/28/2024 1:41 PM EDT Narrative [facility] - 10/29/2024 7:08 PM EDT FASTING:YES FASTING: YES Result [facility] us Gael Alves MD LAB BLOOD ORDERABLES Final Result [facility] [address] [place] [phone] * (ABNORMAL) Complete Blood Count, with Differential (10/28/2024 1:37 PM EDT) Pathologist [facility] White Blood Cell Count 11.5(H) 3.8 - 10.8 Thousand/ uL [facility] Red Blood Cell Count 4.84 4.20 - 5.80 Million/u L [facility] Hemoglobin 14.1 13.2 - 17.1 g/dL [facility] Hematocrit 43.2 38.5 - 50.0 % [facility] MCV 89.3 80.0 - 100.0 fL [facility] MCH 29.1 27.0 - 33.0 pg [facility] MCHC 32.6 32.0 - 36.0 g/dL [facility] Comment: For adults, a slight decrease in the calculated MCHC value (in the range of 30 to 32 g/dL) is most likely not clinically significant; however, it should be interpreted with caution in correlation with other red cell parameters and the patient's clinical condition. RDW 13.9 11.0 - 15.0 % [facility] Platelet Count 437(H) 140 - 400 Thousand/ uL [facility] MPV 8.9 7.5 - 12.5 fL [facility] Abs Neutrophils Auto 7,567 1,500 - 7,800 cells/uL [facility] Abs Lymphocytes Auto 3,128 850 - 3,900 cells/uL [facility] Abs Monocytes Auto 587 200 - 950 cells/uL [facility] Abs Eosinophils Auto 161 15 - 500 cells/uL [facility] Abs Basophils Auto 58 0 - 200 cells/uL [facility] Neutrophils Auto 65.8 % [facility] Lymphocytes Auto 27.2 % [facility] Monocytes Auto 5.1 % [facility] Eosinophils Auto 1.4 % [facility] [facility] Basophils Auto 0.5 % [facility] Blood Blood specimen / Unknown 10/28/2024 1:37 PM EDT 10/28/2024 1:41 PM EDT Narrative [facility] - 10/29/2024 7:08 PM EDT FASTING:YES FASTING: YES Gael Alves MD LAB BLOOD ORDERABLES Final Result Performing Organization Address [facility] de Phone Number [facility] [address] [place] [phone] * (ABNORMAL) Hemoglobin A1C (10/28/2024 1:37 PM EDT) Hemoglobin A1C 7.8(H) <5.7 % [facility] Comment: For someone without known diabetes, a hemoglobin A1c value of 6.5% or greater indicates that they may have diabetes and this should be confirmed with a follow-up test. For someone with known diabetes, a value <7% indicates that their diabetes is well controlled and a value greater than or equal to 7% indicates suboptimal control. A1c targets should be individualized based on duration of diabetes, age, comorbid conditions, and other considerations. Currently, no consensus exists regarding use of hemoglobin A1c for diagnosis of diabetes for children. Blood Blood specimen / Unknown 10/28/2024 1:37 PM EDT 10/28/2024 1:41 PM EDT [facility] - 10/29/2024 7:08 PM EDT FASTING:YES FASTING: YES Gael Alves MD LAB BLOOD ORDERABLES Final Result Performing Organization Address [facility] de Phone Number [facility] [address] [place] [phone] * (ABNORMAL) Comprehensive Metabolic Panel (10/28/2024 1:37 PM EDT) Glucose 161(H) 65 - 99 mg/dL [facility] Comment: Fasting reference interval For someone without known diabetes, a glucose value >125 mg/dL indicates that they may have diabetes and this should be confirmed with a follow-up test. Blood Urea Nitrogen (BUN) 16 7 - 25 mg/dL [facility] Creatinine 1.32(H) 0.70 - 1.30 mg/dL [facility] Creatinine w/ eGFR 65 > OR = 60 mL/min/1. 73m2 [facility] BUN/Creatinine Ratio 12 6 - 22 (calc) [facility] Sodium 137 135 - 146 mmol/L [facility] Potassium 4.3 3.5 - 5.3 mmol/L [facility] Chloride 101 98 - 110 mmol/L [facility] CO2 25 20 - 32 mmol/L [facility] Calcium 9.1 8.6 - 10.3 mg/dL [facility] Protein, Total 7.3 6.1 - 8.1 g/dL [facility] Albumin 4.4 3.6 - 5.1 g/dL [facility] Globulin 2.9 1.9 - 3.7 g/dL (calc) [facility] Albumin/Globulin Ratio 1.5 1.0 - 2.5 (calc) [facility] Bilirubin, Total 0.2 0.2 - 1.2 mg/dL [facility] Alkaline Phosphatase 85 35 - 144 U/L [facility] Aspartate Aminotrans (AST) 13 10 - 35 U/L [facility] Alanine Aminotrans (ALT) 14 9 - 46 U/L [facility] Blood Blood specimen / Unknown 10/28/2024 1:37 PM EDT 10/28/2024 1:41 PM EDT Narrative [facility] - 10/29/2024 7:08 PM EDT FASTING:YES FASTING: YES us Gael Alves MD LAB BLOOD ORDERABLES Final Result [facility] [address] [place] [phone] * HIV 1/2 Ag/Ab CMIA Reflex to Confirmation (07/30/2022 9:56 AM EDT) HIV Ag/Ab, 4th Gen NON-REACT VALENTINO NON-REACT VALENTINO [facility] Comment: HIV-1 antigen and HIV-1/HIV-2 antibodies were not detected. There is no laboratory evidence of HIV infection. PLEASE NOTE: This information has been disclosed to you from records whose confidentiality may be protected by state law. If your state requires such protection, then the state law prohibits you from making any further disclosure of the information without the specific written consent of the person to whom it pertains, or as otherwise permitted by law. A general authorization for the release of medical or other information is NOT sufficient for this purpose. For additional information please refer to http://Tradeos.Directed Edge/faq/OOK361 (This link is being provided for informational/ educational purposes only.) The performance of this assay has not been clinically validated in patients less than 2 years old. Blood specimen (specimen) 07/30/2022 9:56 AM EDT 07/30/2022 9:59 AM EDT Narrative [facility] - 07/31/2022 11:11 AM EDT FASTING:YES FASTING: YES Gael Alves MD LAB BLOOD ORDERABLES Final Result [facility] [address] [place] [phone] * Hepatitis Panel, Acute (07/30/2022 9:56 AM EDT) Hepatitis A Antibody IgM NON-REACT VALENTINO NON-REACT VALENTINO [facility] Comment: For additional information, please refer to http://Tradeos.Directed Edge/faq/ZLE241 (This link is being provided for informational/ educational purposes only.) Hepatitis B Surface Ag Screen NON-REACT VALENTINO NON-REACT VALENTINO [facility] Hepatitis B Core Antibody IgM NON-REACT VALENTINO NON-REACT VALENTINO [facility] Hepatitis C Antibody NON-REACT VALENTINO NON-REACT VALENTINO [facility] Hepatitis C Antibody (s/co) 0.10 <1.00 [facility] Comment: HCV antibody was non-reactive. There is no laboratory evidence of HCV infection. In most cases, no further action is required. However, if recent HCV exposure is suspected, a test for HCV RNA (test code 04367) is suggested. For additional information please refer to http://education.Directed Edge/faq/JIL41y7 (This link is being provided for informational/ educational purposes only.) Blood specimen (specimen) Blood specimen / Unknown 07/30/2022 9:56 AM EDT 07/30/2022 9:59 AM EDT Narrative [facility] - 07/31/2022 11:11 AM EDT FASTING:YES FASTING: YES Gael Alves MD LAB BLOOD ORDERABLES Final Result Performing Organization Address City/State/[facility] Co de Phone Number [facility] [address] [place] [phone] from Last 3 Months or Most Recently Relevant to Health Maintenance Insurance [facility] Care Teams Commercial Loan Assistant Relationship Specialty Start Date End Date Gael Alves MD [address] [place] [address] PCP - General Family Medicine 07/30/22
--- OUTSIDE RECORDS SUMMARY | 2024-11-12 07:51 | XMS_ITS | Encounter Summary ---
Author Organization [facility] Address [address] [place] [address] Care Team Providers Care Cap Maker Name Role Phone Gael Alves MD Primary Care Provider +1- [phone] Encounter Details Date Type Department Care Team ([facility] st Contact Info) Description 08/15/2023 Scanned Document [facility] [address] [place], [place] [phone] Mouna Case APRN [address] [place] [address] Social History Tobacco Use Types Packs/Day Years Used Date Smoking Tobacco: Former Cigarettes Q uit: 03/18/2007 Smokeless Tobacco: Never Alcohol Use Standard Drinks/Week Comments Yes 0 (1 standard drink = 0.6 oz pur e alcohol) on [employer] [facility] Utilities Answer Date Recorded In the past 12 months has [employer], gas, oil, or water [employer] threatened to shut off services in your [...] often do you attend chur ch or druze services? Never 02/10/2023 Do you belong to any clubs o r organizations such as samaritan groups, unions, fraternal or athletic groups, or [...] Date Recorded PHQ-2 Total Score 0 02/11/2023 [facility] - Occupational Stress Questionnaire Answer Date Recorded [...] Description 12/10/2024 11:00 AM EDT Office Visit [facility] [address] [place] [phone] Gael Alves MD [address] [place], [place] documented as of this encounter Visit Diagnoses Not on filedocumented in this encounter Care Teams Cap Maker Relationship Specialty Start Date End Date Gael Alves MD [address] [place] [address] PCP - General Family Medicine 07/30/22 documented as of this encounter
--- OUTSIDE RECORDS SUMMARY | 2024-11-12 07:51 | XMS_ITS | Encounter Summary ---
Author Organization [facility] Address [address] [place] [address] Care Team Providers Care Bandage Winding Machine Operator Name Role Phone Gael Alves MD Primary Care Provider +1- [phone] Encounter Details Date Type Department Care Team ([facility] st Contact Info) Description 10/16/2023 Scanned Document [facility] [address] [place], [place] [phone] Mouna Case APRN [address] [place] [address] Social History Tobacco Use Types Packs/Day Years Used Date Smoking Tobacco: Former Cigarettes Q uit: 03/18/2007 Smokeless Tobacco: Never Alcohol Use Standard Drinks/Week Comments Yes 0 (1 standard drink = 0.6 oz pur e alcohol) on [employer] [facility] Utilities Answer Date Recorded In the past 12 months has [employer], gas, oil, or water [employer] threatened to shut off services in your [...] often do you attend chur ch or gnosticism services? Never 02/10/2023 Do you belong to [...] Date Recorded PHQ-2 Total Score 0 02/11/2023 [facility] - Occupational Stress Questionnaire Answer Date [...] Description 12/10/2024 11:00 AM EDT Office Visit [facility] [address] [place] [phone] Gael Alves MD [address] [place], [place] documented as of this encounter Visit Diagnoses Not on filedocumented in this encounter Care Teams Bandage Winding Machine Operator Relationship Specialty Start Date End Date Gael Alves MD [address] [place] [address] PCP - General Family Medicine 07/30/22 documented as of this encounter
--- OUTSIDE RECORDS SUMMARY | 2024-11-12 07:51 | XMS_ITS | Encounter Summary ---
Author Organization [facility] Address [address] [place] [address] Care Team Providers Care Ceiling Cleaner Name Role Phone Gael Alves MD Primary Care Provider +1- [phone] Encounter Details Date Type Department Care Team ([facility] st Contact Info) Description 04/15/2023 Scanned Document [facility] [address] [phone] MD [address] [place] [address], [place] [address] Social History Tobacco Use Types Packs/Day Years Used Date Smoking Tobacco: Former Cigarettes Q uit: 03/18/2007 Smokeless Tobacco: Never Alcohol Use Standard Drinks/Week Comments Yes 0 (1 standard drink = 0.6 oz pur e alcohol) on [employer] Utilities Answer Date Recorded In the past 12 months has [employer], gas, oil, or water [employer] threatened to shut off services in your [...] often do you attend chur ch or roman catholic services? Never 02/10/2023 Do you belong to any clubs o r organizations such as confucianist groups, unions, fraternal or athletic groups, or [...] Date Recorded PHQ-2 Total Score 0 02/11/2023 [facility] of Occupat ional Health - Occupational Stress [...] stephen e documented as of this encounter Progress Notes * Dacia Bloom MA - 04/15/2023 12:44 PM EST I am not working on an auth for this pt. Thank you documented in this encounter Plan of Treatment Upcoming Encounters Date Type Department Care Team (Late st Contact Info) Description 12/10/2024 11:00 AM EDT Office Visit [place] [phone] Gael Alves MD [address] [place], [place] [phone] documented as of this encounter Visit Diagnoses Not on filedocumented in this encounter Care Teams Ceiling Cleaner Relationship Specialty Start Date End Date Gael Alves MD [address] [place] [address] PCP - General Family Medicine 07/30/22 documented as of this encounter
--- OUTSIDE RECORDS SUMMARY | 2024-11-12 07:51 | XMS_ITS | Encounter Summary ---
Author Organization [facility] Address [address] [place] [address] Care Team Providers Care Loan Interviewer Name Role Phone Gael Alves MD Primary Care Provider +1- [phone] Reason for Visit * Reason Comments Referral Encounter Details Date Type Department Care Team ([facility] Contact Info) Description 01/08/2023 Telephone [facility] [address] [place] [phone] Gael Alves MD [address] [place] [phone] Referral Social History Tobacco Use Types Packs/Day Years [...] Description 12/10/2024 11:00 AM EDT Office Visit [facility] [address] [place], [place] [phone] Gael Alves MD [address] [place], [place] documented as of this encounter Visit Diagnoses Not on filedocumented in this encounter Care Teams Loan Interviewer Relationship Specialty Start Date End Date Gael Alves MD [address] [place] [address] PCP - General Family Medicine 07/30/22 documented as of this encounter
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
[2024-11-12 08:20] VITALS: BMI 51.6
== END 2024-11-12 08:52 | disposition home or self-care (01) ==
LOC: HO.HOS 07:48
PROVIDERS: Visit Provider Physical Medicine & Rehabilitation
DX: M54.50 Low back pain, unspecified (principal)
CPT/HCPCS: 99203

== ENCOUNTER → 2024-11-12 09:24 | Outpatient (BNV) | payer OTHER, SELFPAY | PROVIDERS: Visit Provider Radiology Diagnostic Radiology | DX: M54.50 Low back pain, unspecified (principal) | CPT/HCPCS: 72110 ==

== ENCOUNTER 2024-11-13 09:38 | Outpatient (AMB) | payer OTHER, SELFPAY ==
--- OUTSIDE RECORDS SUMMARY | 2024-11-11 11:30 | XMS_ITS | Encounter Summary ---
Author Organization [facility] Address [address] [place] [address] Care Team Providers Care Transitional Care Liaison Name Role Phone Gael Alves MD Primary Care Provider +1- [phone] Reason for Referral * Gastroenterology (Routine) - Authorized Specialty Diagnoses / Procedures Referred By Contac t Referred To Contact Gastroenterology Diagnoses Colon cancer screening Gael Alves MD [address] [place] [address] Phone: tel: fax: Randy Pickering MD [address] [place] [address] Phone: tel: fax: Referral ID Status Reason Start Date Expiration Date V isits Requested Visits Authorized [id number] Authorized Consult 11/11/2024 11/12/2025 1 1 Question Answer Select Referral Type: Consult Reason for Visit * Reason Comments Annual Exam Encounter Details Date Type Department Care Team ([facility] Contact Info) Description 11/11/2024 11:30 AM EDT Office Visit [facility] [address] [phone] Gael Alves MD [address] [place] [address] Type 2 diabetes mellitus with hyperglycemia, without long-term current use of insulin (HCC) (Primary Dx); Screen for STD (sexually transmitted disease); Colon cancer screening; Annual physical exam Social History Tobacco Use Types Packs/Day Years Used Date Smoking Tobacco: Former Cigarettes Q uit: 03/18/2007 Smokeless Tobacco: Never Alcohol Use Standard Drinks/Week Comments Yes 0 (1 standard drink = 0.6 oz pur e alcohol) on [employer] [facility] Utilities Answer Date Recorded In the past 12 months has [place], gas, oil, or water [employer] threatened to shut off services in your home? No 11/09/2024 Social Connection and Isolat ion Panel [NHANES] Answer Date Recorded In a typical week, how many times do you talk on the phone with family, friends, or neighbors? More than three times a week 11/09/2024 Frequency of Social Gatherin gs with Friends and Family Not on file 11/09/2024 Attends Anabaptist Services Not on file 11/09 Active Member [...] Date Recorded PHQ-2 Total Score 0 11/09/2024 [facility] of Occupat ional Health - Occupational Stress [...] any time in the past 12 m [facility], were you homeless or living in a usp (including now)? No 11/09/2024 Physical Activity Answer [...] Everywhere. * Diabetes Mellitus and Nutrition Adult (Greenlandic) documented in this encounter Progress Notes * [...] use In rodents, ??m?gl?ti?e causes dose-dependent and ovujfezii-ahouixqm-dqufanian thyroid C-cell tumors at clinically relevant exposures. It is unknown whether ?em?gl?ti?e causes thyroid C-cell tumors, including medullary thyroid carcinoma (MTC), in humans as human relevance of ??m?gluti?e-induced rodent thyroid C-cell tumors has not been determined. ??m?glutide is contraindicated in patients with a personal or family history of MTC or in patients with Multiple Endocrine Neoplasia syndrome type 2 (MEN 2). Risk Modeler patients regarding the potential risk for MTC [...] you in any way? no Referral Hotline [phone] (Greenlandic) [phone] (Salvadorean) Do you always fasten your seatbelt when [...] Description 12/10/2024 11:00 AM EDT Office Visit [address] [phone] Gael Alves MD [address] [place] [phone] Scheduled Orders Name Type Priority Associated Diagnoses [...] facility documented in this encounter Care Teams Transitional Care Liaison Relationship Specialty Start Date End Date Gael Alves MD [address] [place] [address] PCP - General Family Medicine 07/30/22 documented as of this encounter
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
--- OUTSIDE RECORDS SUMMARY | 2024-11-13 10:26 | XMS_ITS | Clinical Summary ---
Author Organization [facility] Address [address] [place] [address] Phone Care Team Providers Care Stave Planer Tender Name Role Phone Gael Alves MD Primary Care Provider +1- [phone] Allergies No known active allergies Medications methocarbamoL [...] MEDICAID - [place] AUT[place] GENERIC Care Teams Stave Planer Tender Relationship Specialty Start Date End Date Gael Alves MD [address] [place] [phone] PCP - General Family Medicine 06/11/24
--- OUTSIDE RECORDS SUMMARY | 2024-11-13 10:26 | XMS_ITS | Encounter Summary ---
Author Organization [facility] Address [address] [place] [address] Care Team Providers Care Starch Treating Assistant Name Role Phone Gael Alves MD Primary Care Provider +1- [phone] Encounter Details Date Type Department Care Team ([facility] st Contact Info) Description 08/15/2023 Scanned Document [facility] [address] [place], [place] [phone] Mouna Case APRN [address] [place] [address] Social History Tobacco Use Types Packs/Day Years Used Date Smoking Tobacco: Former Cigarettes Q uit: 03/18/2007 Smokeless Tobacco: Never Alcohol Use Standard Drinks/Week Comments Yes 0 (1 standard drink = 0.6 oz pur e alcohol) on [employer] [facility] Utilities Answer Date Recorded In the past 12 months has [employer], gas, oil, or water [employer] threatened to shut off services in your [...] any clubs o r organizations such as sabianism groups, unions, fraternal or athletic groups, or [...] Date Recorded PHQ-2 Total Score 0 02/11/2023 [facility] - Occupational Stress Questionnaire Answer Date [...] 12/10/2024 11:00 AM EDT Office Visit [facility] [address] [place] [phone] Gael Alves MD [address] [place], [place] documented as of this encounter Visit Diagnoses Not on filedocumented in this encounter Care Teams Starch Treating Assistant Relationship Specialty Start Date End Date Gael Alves MD [address] [place] [address] PCP - General Family Medicine 07/30/22 documented as of this encounter
--- OUTSIDE RECORDS SUMMARY | 2024-11-13 10:26 | XMS_ITS | Encounter Summary ---
Author Organization [facility] Address [address] [place] [address] Care Team Providers Care Vehicle Fuel Systems Converter Name Role Phone Gael Alves MD Primary Care Provider +1- [phone] Encounter Details Date Type Department Care Team ([facility] st Contact Info) Description 10/10/2023 Scanned Document [facility] [address] [phone] Mouna Case, SENIOR SITE MANAGER [address] [place] [address] Social History Tobacco Use Types Packs/Day Years Used Date Smoking Tobacco: Former Cigarettes Q uit: 03/18/2007 Smokeless Tobacco: Never Alcohol Use Standard Drinks/Week Comments Yes 0 (1 standard drink = 0.6 oz pur e alcohol) on [employer] [facility] Utilities Answer Date Recorded In the past 12 months has [employer], gas, oil, or water [employer] threatened to shut off services in your [...] often do you attend chur ch or bahai services? Never 02/10/2023 Do you belong to any clubs o r organizations such as baptist groups, unions, fraternal or athletic groups, or [...] Date Recorded PHQ-2 Total Score 0 02/11/2023 [facility] - [...] Description 12/10/2024 11:00 AM EDT Office Visit [facility] [address] [place], [place] [phone] Gael Alves MD [address] [place], [place] documented as of this encounter Visit Diagnoses Not on filedocumented in this encounter Care Teams Vehicle Fuel Systems Converter Relationship Specialty Start Date End Date Gael Alves MD [address] [place] [address] PCP - General Family Medicine 07/30/22 documented as of this encounter
--- OUTSIDE RECORDS SUMMARY | 2024-11-13 10:26 | XMS_ITS | Encounter Summary ---
Author Organization [facility] Address [address] [place] [address] Care Team Providers Care Foam Caster Name Role Phone Gael Alves MD Primary Care Provider +1- [phone] Reason for Visit * Reason Comments Appointment Encounter Details Date Type Department Care Team ([facility] Contact Info) Description 10/11/2022 Telephone [facility] [place] [phone] Gael Alves MD [address] [place] [phone] Appointment Social History Tobacco Use Types Packs/Day [...] Description 12/10/2024 11:00 AM EDT Office Visit [facility] [address] [place], [place] [phone] Gael Alves MD [address] [place], [place] documented as of this encounter Visit Diagnoses Not on filedocumented in this encounter Care Teams Foam Caster Relationship Specialty Start Date End Date Gael Alves MD [address] [place] [address] PCP - General Family Medicine 07/30/22 documented as of this encounter
--- OUTSIDE RECORDS SUMMARY | 2024-11-13 10:26 | XMS_ITS | Encounter Summary ---
Author Organization [facility] Address [address] [place] [address] Care Team Providers Care Manager Inventory Name Role Phone Gael Alves MD Primary Care Provider +1- [phone] Encounter Details Date Type Department Care Team ([facility] st Contact Info) Description 04/19/2023 Scanned Document [facility] [address] [phone] MD [address] [place] [address], [place] [address] Social History Tobacco Use Types Packs/Day Years Used Date Smoking Tobacco: Former Cigarettes Q uit: 03/18/2007 Smokeless Tobacco: Never Alcohol Use Standard Drinks/Week Comments Yes 0 (1 standard drink = 0.6 oz pur e alcohol) on [employer] Utilities Answer Date Recorded In the past 12 months has [employer], gas, oil, or water [employer] threatened to shut off services in your [...] often do you attend chur ch or baptism services? Never 02/10/2023 Do you belong to any clubs o r organizations such as pentecostal groups, unions, fraternal or athletic groups, or [...] Date Recorded PHQ-2 Total Score 0 02/11/2023 [facility] - Occupational [...] Description 12/10/2024 11:00 AM EDT Office Visit [facility] [address] [place] [phone] Gael Alves MD [address] [place], [place] documented as of this encounter Visit Diagnoses Not on filedocumented in this encounter Care Teams Manager Inventory Relationship Specialty Start Date End Date Gael Alves MD [address] [place] [address] PCP - General Family Medicine 07/30/22 documented as of this encounter
--- OUTSIDE RECORDS SUMMARY | 2024-11-13 10:26 | XMS_ITS | Encounter Summary ---
Author Organization [facility] Address [address] [place] [address] Care Team Providers Care French Cord Binder Name Role Phone Gael Alves MD Primary Care Provider +1- [phone] Encounter Details Date Type Department Care Team ([facility] st Contact Info) Description 10/16/2023 Scanned Document [facility] [address] [place], [place] [phone] Mouna Case APRN [address] [place] [address] Social History Tobacco Use Types Packs/Day Years Used Date Smoking Tobacco: Former Cigarettes Q uit: 03/18/2007 Smokeless Tobacco: Never Alcohol Use Standard Drinks/Week Comments Yes 0 (1 standard drink = 0.6 oz pur e alcohol) on [employer] [facility] Utilities Answer Date Recorded In the past 12 months has [employer], gas, oil, or water [employer] threatened to shut off services in your [...] often do you attend chur ch or sikh services? Never 02/10/2023 Do you belong to any clubs o r organizations such as anglican groups, unions, fraternal or athletic groups, or [...] Date Recorded PHQ-2 Total Score 0 02/11/2023 [facility] - Occupational Stress Questionnaire Answer [...] Description 12/10/2024 11:00 AM EDT Office Visit [facility] [address] [place] [phone] Gael Alves MD [address] [place], [place] documented as of this encounter Visit Diagnoses Not on filedocumented in this encounter Care Teams French Cord Binder Relationship Specialty Start Date End Date Gael Alves MD [address] [place] [address] PCP - General Family Medicine 07/30/22 documented as of this encounter
--- OUTSIDE RECORDS SUMMARY | 2024-11-13 10:26 | XMS_ITS | Encounter Summary ---
Author Organization [facility] Address [address] [place] [address] Care Team Providers Care Small Equipment Operator Name Role Phone Gael Alves MD Primary Care Provider +1- [phone] Reason for Visit * Reason Comments Referral Encounter Details Date Type Department Care Team ([facility] Contact Info) Description 01/08/2023 Telephone [facility] [address] [place] [phone] Gael Alves MD [address] [place] [phone] Referral Social History Tobacco Use Types Packs/Day [...] Description 12/10/2024 11:00 AM EDT Office Visit [facility] [address] [place], [place] [phone] Gael Alves MD [address] [place], [place] documented as of this encounter Visit Diagnoses Not on filedocumented in this encounter Care Teams Small Equipment Operator Relationship Specialty Start Date End Date Gael Alves MD [address] [place] [address] PCP - General Family Medicine 07/30/22 documented as of this encounter
--- OUTSIDE RECORDS SUMMARY | 2024-11-13 10:26 | XMS_ITS | Encounter Summary ---
Author Organization [facility] Address [address] [place] [address] Care Team Providers Care Orchard Sprayer Name Role Phone Gael Alves MD Primary Care Provider +1- [phone] Encounter Details Date Type Department Care Team (Late Contact Info) Description 01/22/2023 Scanned Document [facility] PRIMARY CARE SCAN Primary Care, Scan Social History Tobacco Use Types Packs/Day Years Used Date Smoking Tobacco: Former Cigarettes 0.3 2017 Smokeless Tobacco: Never Alcohol Use Standard Drinks/Week Comments Yes 0 (1 standard drink = 0.6 oz pur e alcohol) on ocassion PHQ-2 Answer Date Recorded PHQ-2 Total Score 0 07/30/2022 [facility] - [...] Description 12/10/2024 11:00 AM EDT Office Visit [facility] [address] [place], [place] [phone] Gael Alves MD [address] [place], [place] documented as of this encounter Visit Diagnoses Not on filedocumented in this encounter Care Teams Orchard Sprayer Relationship Specialty Start Date End Date Gael Alves MD [address] [place] [phone] PCP - General Family Medicine 07/30/22 documented as of this encounter
--- OUTSIDE RECORDS SUMMARY | 2024-11-13 10:26 | XMS_ITS | Encounter Summary ---
Author Organization [facility] Address [address] [place] [address] Care Team Providers Care Cotton Ginner Helper Name Role Phone Gael Alves MD Primary Care Provider +1- [phone] Encounter Details Date Type Department Care Team ([facility] st Contact Info) Description 04/15/2023 Scanned Document [facility] Department of Pain [address] [phone] MD [address] [place] [address], [place] [address] Social History Tobacco Use Types Packs/Day Years Used Date Smoking Tobacco: Former Cigarettes Q uit: 03/18/2007 Smokeless Tobacco: Never Alcohol Use Standard Drinks/Week Comments Yes 0 (1 standard drink = 0.6 oz pur e alcohol) on [employer] Utilities Answer Date Recorded In the past 12 months has [employer], gas, oil, or water apomio threatened to shut off services in your [...] often do you attend chur ch or confucianist services? Never 02/10/2023 Do you belong to any clubs o r organizations such as cheondoism groups, unions, fraternal or athletic groups, or [...] Date Recorded PHQ-2 Total Score 0 02/11/2023 [facility] of Occupat ional Health - Occupational [...] Description 12/10/2024 11:00 AM EDT Office Visit [place] [phone] Gael Alves MD [address] [place], [place] [phone] documented as of this encounter Visit Diagnoses Not on filedocumented in this encounter Care Teams Cotton Ginner Helper Relationship Specialty Start Date End Date Gael Alves MD [address] [place] [address] PCP - General Family Medicine 07/30/22 documented as of this encounter
--- OUTSIDE RECORDS SUMMARY | 2024-11-13 10:26 | XMS_ITS | Clinical Summary ---
Author Organization [facility] Address [address] [place] [address] Care Team Providers Care Laboratory Development Technician Name Role Phone Gael Alves MD Primary Care Provider +1- [phone] Allergies No known active allergies Medications tiZANidine (ZANAFLEX) 2 MG tabletIndication s:Lumbar spondylosis Take 1-2 tablets (2-4 mg total) by mouth 3 (three) times a day as needed (pain). 180 tablet 1 3 Active multivitamin Tab tablet Take 1 tablet by mouth daily. Active SUPPLY DME MISCIndications: Obstructive sleep apnea DME COMPANY: [facility] Order Type: New Set-Up Start Date: 08/14/23 [...] Description 11/11/2024 11:30 AM EDT Office Visit [address] [phone] Gael Alves MD Type 2 diabetes mellitus [...] 0.6 oz pur e alcohol) on ocassion [facility] Utilities Answer Date Recorded In the past [...] and Family Not on file 11/09/2024 Attends [employer] Not on file 11/09 Active Member [...] Date Recorded PHQ-2 Total Score 0 11/09/2024 [facility] of Occupat ional Health - Occupational Stress [...] any time in the past 12 m [facility], were you homeless or living in a skilled nursing (including now)? No 11/09/2024 Physical Activity Answer [...] Description 12/10/2024 11:00 AM EDT Office Visit [address] [phone] Gael Alves MD [address] [place] [phone] Health Maintenance Due Date Last Done Comments [...] Direct LDL (10/28/2024 1:37 PM EDT) Pathologist [facility] Cholesterol, Total 176 <200 mg/dL [facility] Cholesterol, HDL 55 > OR = 40 mg/dL [facility] Triglycerides 137 <150 mg/dL [facility] LDL Cholesterol 97 mg/dL (calc) [facility] Comment: Reference range: <100 Desirable range <100 mg/dL for primary prevention; <70 mg/dL for patients with CHD or diabetic patients with > or = 2 CHD risk factors. LDL-C is now calculated using the Abad-Lovell calculation, which is a validated novel method providing better accuracy than the Friedewald equation in the estimation of LDL-C. Abad SS et al. HANS. 2013;310(19): 2005-4908 (http://education.Soil IQ/faq/OGK673) Cholesterol/HDL Ratio 3.2 <5.0 (calc) [facility] Non HDL Chol. (LDL+VLDL) 121 <130 mg/dL (calc) [facility] Comment: For patients with diabetes plus 1 major ASCVD risk factor, treating to a non-HDL-C goal of <100 mg/dL (LDL-C of <70 mg/dL) is considered a therapeutic option. Blood Blood specimen / Unknown 10/28/2024 1:37 PM EDT 10/28/2024 1:41 PM EDT Narrative [facility] - 10/29/2024 7:08 PM EDT FASTING:YES FASTING: YES Result [facility] us Gael Alves MD LAB BLOOD ORDERABLES Final Result Performing Organization Address [facility] de Phone Number [facility] [address] [place] [phone] * TSH REFLEX FREE T4 (10/28/2024 1:37 PM EDT) TSH reflex Free T4 1.01 0.40 - 4.50 mIU/L [facility] Blood Blood specimen / Unknown 10/28/2024 1:37 PM EDT 10/28/2024 1:41 PM EDT [facility] - 10/29/2024 7:08 PM EDT FASTING:YES FASTING: YES Result [facility] us Gael Alves MD LAB BLOOD ORDERABLES Final Result Performing Organization Address [facility] de Phone Number [facility] [address] [place] [phone] * PSA (10/28/2024 1:37 PM EDT) Pathologist [facility] PSA, Total 0.39 < OR = 4.00 ng/mL [facility] Comment: The total PSA value from this assay system is standardized against the WHO standard. The test result will be approximately 20% lower when compared to the equimolar-standardized total PSA (Cathleen Stanton). Comparison of serial PSA results should be [...] 7:08 PM EDT FASTING:YES FASTING: YES Result [facility] us Gael Alves MD LAB BLOOD ORDERABLES Final Result [facility] [address] [place] [address] * (ABNORMAL) Complete Blood Count, with Differential (10/28/2024 1:37 PM EDT) Pathologist [facility] White Blood Cell Count 11.5(H) 3.8 - 10.8 Thousand/ uL [facility] Red Blood Cell Count 4.84 4.20 - 5.80 Million/u L [facility] Hemoglobin 14.1 13.2 - 17.1 g/dL [facility] Hematocrit 43.2 38.5 - 50.0 % [facility] MCV 89.3 80.0 - 100.0 fL [facility] MCH 29.1 27.0 - 33.0 pg [facility] MCHC 32.6 32.0 - 36.0 g/dL [facility] Comment: For adults, a slight decrease in the calculated MCHC value (in the range of 30 to 32 g/dL) is most likely not clinically significant; however, it should be interpreted with caution in correlation with other red cell parameters and the patient's clinical condition. RDW 13.9 11.0 - 15.0 % [facility] Platelet Count 437(H) 140 - 400 Thousand/ uL [facility] MPV 8.9 7.5 - 12.5 fL [facility] Abs Neutrophils Auto 7,567 1,500 - 7,800 cells/uL [facility] Abs Lymphocytes Auto 3,128 850 - 3,900 cells/uL [facility] Abs Monocytes Auto 587 200 - 950 cells/uL [facility] Abs Eosinophils Auto 161 15 - 500 cells/uL [facility] Abs Basophils Auto 58 0 - 200 cells/uL [facility] Neutrophils Auto 65.8 % [facility] [employer] Lymphocytes Auto 27.2 % [facility] [employer] Monocytes Auto 5.1 % [facility] Eosinophils Auto 1.4 % Que [employer] Basophils Auto 0.5 % [facility] Blood Blood specimen / Unknown 10/28/2024 1:37 PM EDT 10/28/2024 1:41 PM EDT Narrative [facility] - 10/29/2024 7:08 PM EDT FASTING:YES FASTING: YES Gael Alves MD LAB BLOOD ORDERABLES Final Result Performing Organization Address [facility] de Phone Number [facility] [address] [place] [phone] * (ABNORMAL) Hemoglobin A1C (10/28/2024 1:37 PM EDT) Hemoglobin A1C 7.8(H) <5.7 % [facility] Comment: For someone without known diabetes, a [...] PM EDT 10/28/2024 1:41 PM EDT [facility] - 10/29/2024 7:08 PM EDT FASTING:YES FASTING: YES Gael Alves MD LAB BLOOD ORDERABLES Final Result Performing Organization Address [facility] de Phone Number [facility] [address] [place] [address] * (ABNORMAL) Comprehensive Metabolic Panel (10/28/2024 1:37 PM EDT) Glucose 161(H) 65 - 99 mg/dL [facility] Comment: Fasting reference interval For someone without known diabetes, a glucose value >125 mg/dL indicates that they may have diabetes and this should be confirmed with a follow-up test. Blood Urea Nitrogen (BUN) 16 7 - 25 mg/dL [facility] Creatinine 1.32(H) 0.70 - 1.30 mg/dL [facility] Creatinine w/ eGFR 65 > OR = 60 mL/min/1. 73m2 [facility] BUN/Creatinine Ratio 12 6 - 22 (calc) [facility] Sodium 137 135 - 146 mmol/L [facility] Potassium 4.3 3.5 - 5.3 mmol/L [facility] Chloride 101 98 - 110 mmol/L [facility] CO2 25 20 - 32 mmol/L [facility] Calcium 9.1 8.6 - 10.3 mg/dL [facility] Protein, Total 7.3 6.1 - 8.1 g/dL [facility] Albumin 4.4 3.6 - 5.1 g/dL [facility] Globulin 2.9 1.9 - 3.7 g/dL (calc) [facility] Albumin/Globulin Ratio 1.5 1.0 - 2.5 (calc) [facility] Bilirubin, Total 0.2 0.2 - 1.2 mg/dL [facility] Alkaline Phosphatase 85 35 - 144 U/L [facility] Aspartate Aminotrans (AST) 13 10 - 35 U/L [facility] Alanine Aminotrans (ALT) 14 9 - 46 U/L [facility] Blood Blood specimen / Unknown 10/28/2024 1:37 PM EDT 10/28/2024 1:41 PM EDT Narrative [facility] - 10/29/2024 7:08 PM EDT FASTING:YES FASTING: YES us Gael Alves MD LAB BLOOD ORDERABLES Final Result [facility] [address] [place] [phone] * HIV 1/2 Ag/Ab CMIA Reflex to Confirmation (07/30/2022 9:56 AM EDT) HIV Ag/Ab, 4th Gen NON-REACT VALENTINO NON-REACT VALENTINO [facility] Comment: HIV-1 antigen and HIV-1/HIV-2 antibodies were [...] purpose. For additional information please refer to http://Aden [employer] Anais.Galapagos/faq/GYS753 (This link is being provided for informational/ educational purposes only.) The performance of this assay has not been clinically validated in patients less than 2 years old. Blood specimen (specimen) 07/30/2022 9:56 AM EDT 07/30/2022 9:59 AM EDT Narrative [facility] - 07/31/2022 11:11 AM EDT FASTING:YES FASTING: YES Gael Alves MD LAB BLOOD ORDERABLES Final Result [facility] [address] [place] [phone] * Hepatitis Panel, Acute (07/30/2022 9:56 AM EDT) Hepatitis A Antibody IgM NON-REACT VALENTINO NON-REACT VALENTINO [facility] Comment: For additional information, please refer to http://Aden [employer] Anais.Galapagos/faq/UAV442 (This link is being provided for informational/ educational purposes only.) Hepatitis B Surface Ag Screen NON-REACT VALENTINO NON-REACT VALENTINO [facility] Hepatitis B Core Antibody IgM NON-REACT VALENTINO NON-REACT VALENTINO [facility] Hepatitis C Antibody NON-REACT VALENTINO NON-REACT VALENTINO [facility] Hepatitis C Antibody (s/co) 0.10 <1.00 [facility] Comment: HCV antibody was non-reactive. There is no laboratory evidence of HCV infection. In most cases, no further action is required. However, if recent HCV exposure is suspected, a test for HCV RNA (test code 80780) is suggested. For additional information please refer to http://education.Galapagos/faq/QOM61d6 (This link is being provided for informational/ educational purposes only.) Blood specimen (specimen) Blood specimen / Unknown 07/30/2022 9:56 AM EDT 07/30/2022 9:59 AM EDT Narrative [facility] - 07/31/2022 11:11 AM EDT FASTING:YES FASTING: YES Gael Alves MD LAB BLOOD ORDERABLES Final Result Performing Organization Address City/State/[facility] Co de Phone Number [facility] [address] [place] [phone] from Last 3 Months or Most Recently Relevant to Health Maintenance Insurance [facility] Care Teams Laboratory Development Technician Relationship Specialty Start Date End Date Gael Alves MD [address] [place] [address] PCP - General Family Medicine 07/30/22
--- OUTSIDE RECORDS SUMMARY | 2024-11-13 10:26 | XMS_ITS | Encounter Summary ---
Author Organization [facility] Address [address] [place] [address] Care Team Providers Care Carpentry Supervisor Name Role Phone Gael Alves MD Primary Care Provider +1- [phone] Encounter Details Date Type Department Care Team (Late Contact Info) Description 01/24/2023 Scanned Document [facility] PRIMARY [facility]ARE SCAN Primary Care, Scan Social History Tobacco Use Types Packs/Day Years Used Date Smoking Tobacco: Former Cigarettes 0.3 2017 Smokeless Tobacco: Never Alcohol Use Standard Drinks/Week Comments Yes 0 (1 standard drink = 0.6 oz pur e alcohol) on ocassion PHQ-2 Answer Date Recorded PHQ-2 Total Score 0 07/30/2022 [facility] of Occupat ional Health - Occupational [...] [facility] [place] [address] [place], [place] [phone] Gael Alves MD [address] [place], [place] documented as of this encounter Visit Diagnoses Not on filedocumented in this encounter Care Teams Carpentry Supervisor Relationship Specialty Start Date End Date Gael Alves MD [address] [place] [phone] PCP - General Family Medicine 07/30/22 documented as of this encounter
--- OUTSIDE RECORDS SUMMARY | 2024-11-13 10:26 | XMS_ITS | Encounter Summary ---
Author Organization [facility] Address [address] [place] [address] Care Team Providers Care Fry Cook Name Role Phone Gael Alves MD Primary Care Provider +1- [phone] Encounter Details Date Type Department Care Team (Latest Contact Info) Description 11/11/2024 Travel Social History Tobacco Use Types Packs/Day Years Used Date Smoking Tobacco: Former Cigarettes Q uit: 03/18/2007 Smokeless Tobacco: Never Alcohol Use Standard Drinks/Week Comments Yes 0 (1 standard drink = 0.6 oz pur e alcohol) on [employer] Utilities Answer Date Recorded In the past 12 months has [employer] electric, gas, oil, or water company threatened [...] and Family Not on file 11/09/2024 Attends [employer] Not on file 11/09 Active Member [...] Date Recorded PHQ-2 Total Score 0 11/09/2024 [facility] of Occupat ional Health - Occupational Stress [...] any time in the past 12 m [facility], were you homeless or living in a fpc (including now)? No 11/09/2024 Physical Activity Answer [...] Description 12/10/2024 11:00 AM EDT Office Visit [address] [phone] Gael Alves MD [address] [place] [address] documented as of this encounter Visit Diagnoses Not on filedocumented in this encounter Care Teams Fry Cook Relationship Specialty Start Date End Date Gael Alves MD [address] [place] [address] PCP - General Family Medicine 07/30/22 documented as of this encounter
--- OUTSIDE RECORDS SUMMARY | 2024-11-13 10:26 | XMS_ITS | Encounter Summary ---
Author Organization [facility] Address [address] [place] [address] Care Team Providers Care Watch Repair Person Name Role Phone Gael Alves MD Primary Care Provider +1- [phone] Encounter Details Date Type Department Care Team (Late st Contact Info) Description 04/11/2023 Scanned Document [address] [place] [phone] Primary Care, Scan Social History Tobacco Use Types Packs/Day Years Used Date Smoking Tobacco: Former Cigarettes Q uit: 03/18/2007 Smokeless Tobacco: Never Alcohol Use Standard Drinks/Week Comments Yes 0 (1 standard drink = 0.6 oz pur e alcohol) on [employer] [facility] Utilities Answer Date Recorded In the past 12 months has [employer] electric, gas, oil, or water company threatened [...] often do you attend chur ch or restorationism services? Never 02/10/2023 Do you belong to any clubs o r organizations such as yazdanism groups, unions, fraternal or athletic groups, or [...] Date Recorded PHQ-2 Total Score 0 02/11/2023 [facility] - Occupational Stress Questionnaire Answer Date [...] [facility] [address] [place] [phone] Gael Alves MD [address] [place] [address] documented as of this encounter Procedures Procedure Name Priority Date/Time Associated Diagnosis Comments HX OUTSIDE ORDER 04/11/2023 documented in this encounter Results * HX OUTSIDE ORDER (04/11/2023) us Scan Primary Care HX AMB PROCEDURES Final Result documented in this encounter Visit Diagnoses Not on filedocumented in this encounter Care Teams Watch Repair Person Relationship Specialty Start Date End Date Gael Alves MD [address] [place] [phone] PCP - General Family Medicine 07/30/22 documented as of this encounter
== END 2024-11-13 10:14 | disposition home or self-care (01) ==
PROVIDERS: Visit Provider Physical Medicine & Rehabilitation
DX: M54.50 Low back pain, unspecified (principal); M62.830 Muscle spasm of back; M47.816 Spondylosis without myelopathy or radiculopathy, lumbar region
CPT/HCPCS: 99214

== ENCOUNTER → 2024-11-13 09:38 | Outpatient (BNVA) | payer OTHER, SELFPAY | PROVIDERS: Visit Provider Physical Medicine & Rehabilitation | DX: M54.50 Low back pain, unspecified (principal); M47.816 Spondylosis without myelopathy or radiculopathy, lumbar region; M62.830 Muscle spasm of back | CPT/HCPCS: 99212 ==